=== PATIENT | male | born 1945 | race Caucasian/White ===

== ENCOUNTER → 2017-06-15 | Outpatient (CLI) | payer MEDICARE ==
[2017-06-15 16:25] LABS: VITAMIN-B12 721 pg/mL (247-911)
[2017-06-15 16:27] LABS: THYROID STIM HORMONE (TSH) 4.941 uIU/mL (0.358-3.74)
[2017-06-15 16:27] LABS: FREE T4 1.05 ng/dL (0.76-1.46)
[2017-06-18 17:21] LABS: ARSENIC UR None Detected ug/L (0-50); CADMIUM UR None Detected ug/L (None detected); LEAD UR None Detected ug/L (0-49); MERCURY UR None Detected ug/L (0-19)
== END | disposition home or self-care (01) ==
LOC: LAB 15:09
DX: R41.3 Other amnesia (principal)
CPT/HCPCS: 36415; 82306; 82607; 84439; 84443

== ENCOUNTER → 2017-07-01 | Outpatient (CLI) | payer MEDICARE | END | disposition home or self-care (01) | LOC: RT 10:12 | DX: R41.3 Other amnesia (principal) | CPT/HCPCS: 95816 ==